=== PATIENT | male | born 1940 | race Asian ===

== ENCOUNTER → 2016-11-20 | Outpatient (CLI) | payer MEDICARE, BC | END | disposition home or self-care (01) | LOC: PCVCCLINIC 09:36 | PROVIDERS: ATTEND Nuclear Medicine Nuclear Cardiology | DX: I25.10 Atherosclerotic heart disease of native coronary artery without angina pectoris (principal); Z95.5 Presence of coronary angioplasty implant and graft | CPT/HCPCS: 80061 ==

== ENCOUNTER → 2016-11-22 | Outpatient (CLI) | payer MEDICARE, BC | END | disposition home or self-care (01) | LOC: PCVCCLINIC 14:34 | PROVIDERS: ATTEND Internal Medicine | DX: I25.119 Atherosclerotic heart disease of native coronary artery with unspecified angina pectoris (principal); I10 Essential (primary) hypertension; E78.5 Hyperlipidemia, unspecified; R94.31 Abnormal electrocardiogram [ECG] [EKG]; Z87.891 Personal history of nicotine dependence; Z79.899 Other long term (current) drug therapy | CPT/HCPCS: 93005; G0463 ==

== ENCOUNTER → 2016-12-07 | Outpatient (CLI) | payer MEDICARE, BC ==
--- NOTE | 2016-12-07 18:24 | PCVCIMAG ---
APPROVED REPORT Exam: Stress Echocardiogram Indication: CAD, Stent, Hypertension Patient Location: Echo lab Stress Nurse: Tish Hartmann RN Status: routine Ht: 5 ft 9 in HR: 69 bpm BP: 104/74 mmHg Rhythm: NSR Procedure The patient underwent an Exercise Stress Test using the Jonah Protocol. Blood pressure, heart rate, and EKG were monitored. An Echocardiogram was performed by aviation technician in four stages in quad fashion. At peak stress, four selected images were obtained and placed side by side with resting images for comparison. Stress Test Details Stress Test: Exercise stress testing was performed using a Jonah protocol. HR Resting HR: 69 bpmMax Heart Rate (APMHR): 142 bpm Max HR Achieved: 136 bpmTarget HR (85% APMHR): 120 bpm % of APMHR: 95 HR response to stress: Normal HR response to stress BP Resting BP: 120/80 mmHg Max BP: 160/64 mmHg ECG Resting ECG: Sinus Rhythm Stress ECG: Sinus Rhythm ST Change: Strongly positive Maximum ST Deviation: 4 mm Arrhythmia: APC's, None Clinical Reason for Termination: Maximal effort Exercise duration: 9 min 21 sec Highest Stage Achieved: Stage 4: 4.2 mph at 16% grade. Exercise capacity: 11.20 METs Overall Exercise Capacity for Age: Good Angina Score: None Stress ECG Conclusion Clinical: Non-ischemic Abnormal exercise stress ECG consistent with stress-induced myocardial ischemia, similar to a stress study dated January 2015. Nelson Treadmill Score is -11.0 which is High risk. Pre-Stress Echo The resting Echocardiogram showed normal left ventricular contractility with an estimated Ejection Fraction of about 55-60%. Normal wall motion in all segments on baseline images. Post-Stress Echo The stress Echocardiogram showed normal left ventricular contractility with an estimated Ejection Fraction of about 60-65%. Normal augmentation of wall motion in all segments on post stress images. Clinical No clinical or ECG evidence for ischemia. Conclusion Clinical Response: Non-ischemic Exercise Capacity: Average Stress ECG Response: Ischemic Stress Echo Images: Non-ischemic Normal stress echocardiogram with maximal exercise stress. Strongly positive electrocardiographic response, similar to a study dated January 2015 at which time mild coronary plaquing seen by angiography. <Conclusion> Normal stress echocardiogram with maximal exercise stress. Strongly positive electrocardiographic response, similar to a study dated January 2015 at which time mild coronary plaquing seen by angiography.
== END | disposition home or self-care (01) ==
LOC: PCVCIMAG 13:39
PROVIDERS: ATTEND Internal Medicine
DX: I25.10 Atherosclerotic heart disease of native coronary artery without angina pectoris (principal); E78.5 Hyperlipidemia, unspecified; I10 Essential (primary) hypertension; I65.23 Occlusion and stenosis of bilateral carotid arteries; Z95.5 Presence of coronary angioplasty implant and graft; Z87.891 Personal history of nicotine dependence
CPT/HCPCS: 93325; 93351